=== PATIENT | female | born 1965 | race Caucasian/White ===

== ENCOUNTER 2017-03-17 20:36 | Emergency (ER) | payer OTHER ==
[~2017-03-17] VITALS: Ht 170.2 cm; Wt 73.9 kg
--- NOTE | 2017-03-17 21:11 | ED ANIMAL BITE/WOUND CHECK ---
History of Present Illness General Chief Complaint: Animal/Insect Bite Stated Complaint: RABIES SERIES PER PT, +EXPOSURE TO RABID CAT Source: patient Exam Limitations: no limitations Vital Signs & Intake/Output Vital Signs & Intake/Output Vital Signs Date Time Temp Pulse Resp B/P B/P Pulse O2 O2 Flow FiO2 Mean Ox Delivery Rate 03/17 2102 98.5 67 18 140/82 99 Room Air Allergies Coded Allergies: poison ann extract (Severe, RASH, HIVES 03/17/17) Triage Note: PT TO TRIAGE REQUESTING RABIES VACCINATIONS DUE TO EXPOSURE TO +RABIES CAT 10 DAYS AGO. NO COMPLAINTS. VSS. Triage Nurses Notes Reviewed? yes Onset: Abrupt Duration: day(s): (9), constant, continues in ED Timing: recent history Injury Environment: home No Modifying Factors: none HPI: 51-year-old female brought to the emergency room for further evaluation of rabies exposure. Patient held achy in 9 days ago. The kids diet and was found to be positive for rabies. They can have been a rescue kitten from a long-term. Patient denies any symptoms. Denies any pain. She admits that she was recently treated for poison ann with prednisone. Patient still some mild rash on her body. Denies any other source of symptoms. Past History Travel History Traveled to [place] past 21 day No Medical History Any Pertinent Medical History? see below for history Cardiovascular: hypertension Psychiatric: anxiety Surgical History Surgical History: non-contributory Psychosocial History What is your primary language Vietnamese Tobacco Use: Never used Family History Hx Contributory? No Review of Systems Review of Systems Constitutional: Reports: no symptoms. EENTM: Reports: no symptoms. Respiratory: Reports: no symptoms. Cardiovascular: Reports: no symptoms. GI: Reports: no symptoms. Genitourinary: Reports: no symptoms. Musculoskeletal: Reports: no symptoms. Skin: Reports: see HPI. Neurological/Psychological: Reports: no symptoms. Hematologic/Endocrine: Reports: no symptoms. Immunologic/Allergic: Reports: see HPI. All Other Systems: Reviewed and Negative Physical Exam Physical Exam General Appearance: well developed/nourished Head: atraumatic Eyes: Bilateral: normal appearance. Ears, Nose, Throat: normal ENT inspection, hearing grossly normal Neck: normal inspection Respiratory: no respiratory distress Back: normal inspection Extremities: normal range of motion Neurologic/Psych: awake, alert, oriented x 3, normal mood/affect Skin: intact, patchy red rash on right side of abdomen, maculopapular rash on extremities, Progress Differential Diagnosis: abscess, cellulitis, joint infection, tenosysnovitis, rabies, contact dermatitis, allergic reaction Plan of Care: 03/17/2017 10:37:44 PM Patient treated for exposure to rabies. Instructed to return on day 3 7 and 14 for vaccine. Clinically looks well. Departure Departure Disposition: HOME OR SELF CARE Condition: Stable Clinical Impression Primary Impression: Rabies exposure Referrals: KASSIE GRIGSBY MD (PCP/Family) Additional Instructions: Return on days 3, 7 and 14 for rabies vaccine boosters. Return if any other concerns worsening symptoms. Please go over all results of today's visit with your primary care doctor. Contact your primary care doctor to let them know you were here in the emergency room. There may be nonspecific findings which may not be related to your visit today here in the emergency room but may require further evaluation and chronic monitoring by your primary care doctor. If you had a laceration today the chance of foreign body always remains. You should follow-up with your primary care doctor for recheck in 3-5 days for a wound check. If you had an x-ray done there is a chance that a fracture could have been missed on initial read and you should follow-up with your primary care doctor for repeat x-rays if symptoms persist. If your blood pressure was elevated here in the emergency room please have rechecked by her primary care doctor within the next 48 hours by your primary care doctor. If you were prescribed a narcotic here in the emergency room or any type of controlled substances you're not allowed to drive while taking this medication or operate any type of heavy machinery. Narcotics can make you feel lightheaded dizziness nausea and can cause constipation. You may need to curing pickling packer a stool softener. Thank you for choosing [facility] emergency room. Please return to the emergency room immediately if you have any other concerns worsening of symptoms. Departure Forms: Customer Survey General Discharge Information
[2017-03-17 22:45] VITALS: BP 151/71
== END 2017-03-17 22:54 ==
LOC: ERH 20:36
DX: Z20.3 Contact with and (suspected) exposure to rabies (principal)
CPT/HCPCS: 90376; 90471

== ENCOUNTER 2017-03-20 16:24 | Emergency (ER) | payer OTHER ==
[~2017-03-20] VITALS: Ht 170.2 cm; Wt 73.9 kg
[2017-03-20 16:31] VITALS: BP 127/79
--- NOTE | 2017-03-20 16:33 | ED GENERAL ADULT ---
History of Present Illness General Chief Complaint: General Adult Stated Complaint: PT IS HERE FOR 2 RABIE SHOT Source: patient Exam Limitations: no limitations Vital Signs & Intake/Output Vital Signs & Intake/Output Vital Signs Date Time Temp Pulse Resp B/P B/P Pulse O2 O2 Flow FiO2 Mean Ox Delivery Rate 03/20 1631 97.4 76 16 127/79 97 Room Air Allergies Coded Allergies: poison ann extract (Severe, RASH, HIVES 03/17/17) Triage Note: PT HERE FOR HER 2ND RABIES SHOT. Triage Nurses Notes Reviewed? yes Onset: Abrupt Duration: day(s):, constant, continues in ED Timing: recent history Injury Environment: home Severity: moderate, severe No Modifying Factors: none HPI: 51-year-old female comes into emergency room for further evaluation of second rabies vaccine. Patient had a positive exposure with a cat that was diagnosed with rabies. She denies any symptoms. Denies any pain. (MAYKEL BASS) Past History Travel History Traveled to [place] past 21 day No Medical History Any Pertinent Medical History? see below for history Cardiovascular: hypertension Psychiatric: anxiety Surgical History Surgical History: non-contributory Psychosocial History What is your primary language Mohawk Tobacco Use: Never used ETOH Use: denies use Illicit Drug Use: denies illicit drug use Family History Hx Contributory? No (MAKYEL BASS) Review of Systems Review of Systems Constitutional: Reports: no symptoms. EENTM: Reports: no symptoms. Respiratory: Reports: no symptoms. Cardiovascular: Reports: no symptoms. GI: Reports: no symptoms. Genitourinary: Reports: no symptoms. Musculoskeletal: Reports: no symptoms. Skin: Reports: no symptoms. Neurological/Psychological: Reports: no symptoms. Hematologic/Endocrine: Reports: no symptoms. Immunologic/Allergic: Reports: no symptoms. All Other Systems: Reviewed and Negative (MAYKEL BASS) Physical Exam Physical Exam General Appearance: well developed/nourished, no apparent distress, alert Head: atraumatic, normal appearance Eyes: Bilateral: normal appearance. Ears, Nose, Throat: normal ENT inspection Neck: normal inspection Respiratory: no respiratory distress Back: normal range of motion Extremities: normal range of motion, no edema Neurologic/Psych: awake, alert, oriented x 3 Skin: intact, normal color Core Measures ACS in differential dx? No CVA/TIA Diagnosis: No Severe Sepsis Present: No Septic Shock Present: No (MAYKEL BASS) Progress Differential Diagnoses I considered the following diagnoses in my evaluation of the patient: Rabies, cellulitis, abscess, med reaction, Plan of Care: Current Medications Sig/Nidhi Start time Last Medication Dose Stop Time Status Admin Rabies Vaccine 1 SYR ONCE ONE 03/20 1645 AC (Rabies (Vaccine) 03/20 1646 Inj (1ML)) Initial ED EKG: none (MAYKEL BASS) Departure Departure Disposition: HOME OR SELF CARE Condition: Stable Clinical Impression Primary Impression: Rabies exposure Referrals: SEB CANAS,KASSIE (PCP/Family) Additional Instructions: Return as previously instructed. Please go over all results of today's visit with your primary care doctor. Contact your primary care doctor to let them know you were here in the emergency room. There may be nonspecific findings which may not be related to your visit today here in the emergency room but may require further evaluation and chronic monitoring by your primary care doctor. If you had a laceration today the chance of foreign body always remains. You should follow-up with your primary care doctor for recheck in 3-5 days for a wound check. If you had an x-ray done there is a chance that a fracture could have been missed on initial read and you should follow-up with your primary care doctor for repeat x-rays if symptoms persist. If your blood pressure was elevated here in the emergency room please have rechecked by her primary care doctor within the next 48 hours by your primary care doctor. If you were prescribed a narcotic here in the emergency room or any type of controlled substances you're not allowed to drive while taking this medication or operate any type of heavy machinery. Narcotics can make you feel lightheaded dizziness nausea and can cause constipation. You may need to steel pickler a stool softener. Thank you for choosing [facility] emergency room. Please return to the emergency room immediately if you have any other concerns worsening of symptoms. Departure Forms: Customer Survey General Discharge Information (MAYKEL BASS) PA/RESEARCH NURSE PRACTITIONER Co-Sign Statement Statement: ED Attending supervision documentation- [] I saw and evaluated the patient. I have also reviewed all the pertinent lab results and diagnostic results. I agree with the findings and the plan of care as documented in the PA's/RESEARCH NURSE PRACTITIONER's documentation. [X] I have reviewed the ED Record and agree with the PA's/RESEARCH NURSE PRACTITIONER's documentation. [] Additions or exceptions (if any) to the PAs/RESEARCH NURSE PRACTITIONER's note and plan are summarized below: [] (RJ CANAS,EMPERATRIZ) Critical Care Note Critical Care Note Critical Care Time: non-applicable (MAYKEL BASS)
== END 2017-03-20 16:46 ==
LOC: ERH 16:24
DX: Z23 Encounter for immunization (principal)
CPT/HCPCS: 90471; 99281

== ENCOUNTER 2017-03-24 09:04 | Emergency (ER) | payer OTHER ==
[2017-03-24 09:09] VITALS: BP 111/74
--- NOTE | 2017-03-24 09:11 | ED GENERAL ADULT ---
History of Present Illness General Chief Complaint: Animal/Insect Bite Stated Complaint: 3RD RABIES VAC Source: patient Exam Limitations: no limitations Vital Signs & Intake/Output Vital Signs & Intake/Output Vital Signs Date Time Temp Pulse Resp B/P B/P Pulse O2 O2 Flow FiO2 Mean Ox Delivery Rate 03/24 0909 99.3 67 16 111/74 98 Room Air Allergies Coded Allergies: poison ann extract (Severe, RASH, HIVES 03/17/17) Triage Note: PT HERE FOR 3RD RABBIES VACCINE Triage Nurses Notes Reviewed? yes HPI: 51-year-old female history of hypertension and anxiety presenting for her third rabies vaccine. Patient had animal bite on March 17, was treated with first rabies vaccine that day. Follow up for second rabies vaccine on March 20. Denies fevers, abdominal pain, nausea, vomiting, diarrhea, chest pain, shortness of breath, lightheadedness, dizziness. Past History Travel History Traveled to [place] past 21 day No Medical History Any Pertinent Medical History? see below for history Cardiovascular: hypertension Psychiatric: anxiety Surgical History Surgical History: non-contributory Psychosocial History What is your primary language Yakut Tobacco Use: Never used Family History Hx Contributory? No Review of Systems Review of Systems Constitutional: Reports: no symptoms. EENTM: Reports: no symptoms. Respiratory: Reports: no symptoms. Cardiovascular: Reports: no symptoms. GI: Reports: no symptoms. Genitourinary: Reports: no symptoms. Musculoskeletal: Reports: no symptoms. Skin: Reports: no symptoms. Neurological/Psychological: Reports: no symptoms. Physical Exam Physical Exam General Appearance: well developed/nourished, no apparent distress, comfortable Head: atraumatic Respiratory: normal breath sounds, lungs clear Cardiovascular: regular rate/rhythm, normal peripheral pulses Gastrointestinal: soft, non-tender Neurologic/Psych: awake, alert, oriented x 3, normal mood/affect Core Measures ACS in differential dx? No CVA/TIA Diagnosis: No Severe Sepsis Present: No Septic Shock Present: No Progress Differential Diagnoses I considered the following diagnoses in my evaluation of the patient: [Encounter for rabies vaccine] Plan of Care: Current Medications Sig/Nidhi Start time Last Medication Dose Stop Time Status Admin Rabies Vaccine 1 SYR ONCE ONE 03/24 915 UNVr (Rabies (Vaccine) 03/24 0916 Inj (1ML)) Patient given her dose of rabies vaccine today. Instructed to follow-up in 7 days for her fourth and final rabies vaccine (MAURICE PA-C,ELIECER) Initial ED EKG: none Departure Departure Disposition: HOME OR SELF CARE Condition: Stable Clinical Impression Primary Impression: Encounter for repeat administration of rabies vaccination Referrals: SEB CANAS,KASSIE (PCP/Family) Additional Instructions: Follow-up in 7 days for your fourth and final rabies vaccine injection. Return to the ED for any new or worsening symptoms. Departure Forms: Customer Survey General Discharge Information Critical Care Note Critical Care Note Critical Care Time: non-applicable
== END 2017-03-24 09:39 ==
LOC: ERH 09:04
DX: Z23 Encounter for immunization (principal)
CPT/HCPCS: 90471; 99281

== ENCOUNTER 2017-03-31 09:52 | Emergency (ER) | payer OTHER ==
[~2017-03-31] VITALS: Ht 170.2 cm; Wt 73.9 kg
[2017-03-31 09:58] VITALS: BP 103/69
--- NOTE | 2017-03-31 10:00 | ED ANIMAL BITE/WOUND CHECK ---
History of Present Illness General Chief Complaint: General Adult Stated Complaint: LAST RABIES SHOT Source: patient Exam Limitations: no limitations Vital Signs & Intake/Output Vital Signs & Intake/Output Vital Signs Date Time Temp Pulse Resp B/P B/P Pulse O2 O2 Flow FiO2 Mean Ox Delivery Rate 03/31 1000 99 Room Air 03/31 0958 98.2 65 18 103/69 99 Room Air Allergies Coded Allergies: poison ann extract (Severe, RASH, HIVES 03/17/17) Reconcile Medications No Known Home Medications Triage Nurses Notes Reviewed? yes Onset: Abrupt Duration: week(s): (2) Timing: recent history Injury Environment: work No Modifying Factors: none HPI: 51 year old female presents for her last rabies shot. The patient was exposed to a cat from a senior care that of rabies. No mucus membrane exposure. No complaints. Denies fever or chills. Past History Travel History Traveled to [place] past 21 day No Medical History Any Pertinent Medical History? see below for history Neurological: NONE EENT: NONE Cardiovascular: hypertension Respiratory: NONE Gastrointestinal: NONE Hepatic: NONE Renal: NONE Musculoskeletal: NONE Psychiatric: anxiety Endocrine: NONE Blood Disorders: NONE Cancer(s): NONE ALLOCATIONS CLERK/Reproductive: NONE Surgical History Surgical History: non-contributory Psychosocial History What is your primary language Croatian Tobacco Use: Never used Family History Hx Contributory? No Review of Systems Review of Systems Constitutional: Denies: chills, fever. EENTM: Reports: no symptoms. Respiratory: Denies: short of breath. Cardiovascular: Reports: no symptoms. GI: Reports: no symptoms. Genitourinary: Reports: no symptoms. Musculoskeletal: Denies: muscle pain, muscle stiffness. Skin: Reports: no symptoms. Neurological/Psychological: Denies: anxiety, confusion. Hematologic/Endocrine: Reports: no symptoms. Immunologic/Allergic: Reports: no symptoms. All Other Systems: Reviewed and Negative Physical Exam Physical Exam General Appearance: well developed/nourished, alert, awake, anxious, mild distress Head: atraumatic Eyes: Bilateral: PERRL, EOMI. Ears, Nose, Throat: normal pharynx, normal ENT inspection, hearing grossly normal Neck: normal inspection, supple Respiratory: normal breath sounds Cardiovascular: regular rate/rhythm Peripheral Pulses: 2+ radial (R), 2+ radial (L) Gastrointestinal: soft, non-tender Back: normal inspection Extremities: normal range of motion Neurologic/Psych: awake, alert, oriented x 3, normal mood/affect Skin: intact, normal color, warm/dry Lymphatic: no anterior cervical marshall Progress Differential Diagnosis: rabies vaccination Plan of Care: Current Medications Sig/Nidhi Start time Last Medication Dose Stop Time Status Admin Rabies Vaccine 1 SYR ONCE ONE 03/31 1000 AC (Rabies (Vaccine) 03/31 1001 Inj (1ML)) Departure Departure Time of Disposition: 1008 Disposition: HOME OR SELF CARE Condition: Stable Clinical Impression Primary Impression: Encounter for repeat administration of rabies vaccination Referrals: SEB CANAS,KASSIE (PCP/Family) Additional Instructions: Follow-up with your doctor in the office. Return as needed. Departure Forms: Customer Survey General Discharge Information Prescriptions: Current Visit Scripts No Known Home Medications
== END 2017-03-31 10:12 ==
LOC: ERH 09:52
DX: Z20.3 Contact with and (suspected) exposure to rabies (principal)
CPT/HCPCS: 90471; 99281